=== PATIENT | female | born 1960 | race Caucasian/White ===

== ENCOUNTER → 2022-05-06 09:52 | Outpatient (BNVA) | payer MEDICARE, SELFPAY | PROVIDERS: Visit Provider Anesthesiology Pain Medicine | DX: G89.29 Other chronic pain (principal); M54.12 Radiculopathy, cervical region; M54.16 Radiculopathy, lumbar region; M43.26 Fusion of spine, lumbar region; M43.24 Fusion of spine, thoracic region; Z87.891 Personal history of nicotine dependence | CPT/HCPCS: 72040; 72070; 72100; 99204 ==

== ENCOUNTER → 2022-05-27 09:05 | Outpatient (BNVA) | payer MEDICARE, SELFPAY | PROVIDERS: Visit Provider Anesthesiology Pain Medicine | DX: G89.29 Other chronic pain (principal); M43.24 Fusion of spine, thoracic region; M43.26 Fusion of spine, lumbar region; M54.12 Radiculopathy, cervical region; M79.604 Pain in right leg; M79.605 Pain in left leg; Z87.891 Personal history of nicotine dependence | CPT/HCPCS: 99214 ==

== ENCOUNTER → 2022-07-04 10:15 | Outpatient (BNVA) | payer MEDICARE, SELFPAY | PROVIDERS: Visit Provider Anesthesiology Pain Medicine | DX: G89.29 Other chronic pain (principal); M54.12 Radiculopathy, cervical region; M43.24 Fusion of spine, thoracic region; M43.26 Fusion of spine, lumbar region; M79.604 Pain in right leg; M79.605 Pain in left leg; Z87.891 Personal history of nicotine dependence | CPT/HCPCS: 99214 ==

== ENCOUNTER → 2022-07-22 08:42 | Outpatient (BNVA) | payer MEDICARE, SELFPAY | PROVIDERS: Visit Provider Anesthesiology Pain Medicine | DX: G89.29 Other chronic pain (principal); M43.24 Fusion of spine, thoracic region; M54.12 Radiculopathy, cervical region; M43.26 Fusion of spine, lumbar region; M79.18 Myalgia, other site | CPT/HCPCS: 20553; 99214; J1030; J3490 ==

== ENCOUNTER → 2022-08-22 09:50 | Outpatient (BNVA) | payer MEDICARE, SELFPAY | PROVIDERS: Visit Provider Anesthesiology Pain Medicine | DX: G89.29 Other chronic pain (principal); M43.26 Fusion of spine, lumbar region; M43.24 Fusion of spine, thoracic region; M54.12 Radiculopathy, cervical region; M79.604 Pain in right leg; M79.605 Pain in left leg | CPT/HCPCS: 99214 ==

== ENCOUNTER 2022-09-23 09:04 | Outpatient (CLI) | payer MEDICARE, SELFPAY ==
--- NOTE | 2022-09-23 09:31 | US_ITS ---
WS: [id number] ULTRASOUND LEFT BREAST HISTORY: Status post LEFT mastectomy for cancer. Patient experiencing pain and palpable nodule along the surgical site near the axillary tail. COMPARISON: None available. TECHNIQUE: 2-D and Doppler. Ultrasound is directed along the axillary tail, near the surgical site in the area of pain. No suspic ious findings are identified. No mass is identified. No abnormality in the LEFT axilla. US/US breast LT limited* [id number] IMPRESSION: BI-RADS: 2-Benign FOLLOW-UP: See Report No ultrasound abnormality involving the LEFT chest wall at the mastectomy site.
== END 2022-09-23 09:05 | disposition home or self-care (01) ==
LOC: RAD 09:17
PROVIDERS: Visit Provider Family Medicine
DX: N64.4 Mastodynia (principal); Z90.12 Acquired absence of left breast and nipple
CPT/HCPCS: 76642

== ENCOUNTER → 2022-11-14 09:24 | Outpatient (BNVA) | payer MEDICARE, SELFPAY | PROVIDERS: PCP Family Medicine; Visit Provider Internal Medicine Pulmonary Disease | DX: J44.9 Chronic obstructive pulmonary disease, unspecified (principal); Z87.891 Personal history of nicotine dependence; Z98.1 Arthrodesis status | CPT/HCPCS: 99204 ==

== ENCOUNTER → 2023-03-10 11:10 | Outpatient (BNVA) | payer MEDICARE, SELFPAY | PROVIDERS: PCP Family Medicine; Visit Provider Internal Medicine Pulmonary Disease | DX: M25.641 Stiffness of right hand, not elsewhere classified (principal); M25.642 Stiffness of left hand, not elsewhere classified; J98.4 Other disorders of lung; M41.9 Scoliosis, unspecified; J84.9 Interstitial pulmonary disease, unspecified; R06.02 Shortness of breath | CPT/HCPCS: 36415; 71046; 82785; 85025; 85651; 86003; 86140; 86200; 86225; 86235; 86431; 99214 ==

== ENCOUNTER → 2023-03-19 10:13 | Outpatient (BNVA) | payer MEDICARE, SELFPAY | PROVIDERS: PCP Family Medicine; Visit Provider Anesthesiology Pain Medicine | DX: M43.24 Fusion of spine, thoracic region (principal); G89.29 Other chronic pain; M54.12 Radiculopathy, cervical region; M43.26 Fusion of spine, lumbar region | CPT/HCPCS: 99214 ==

== ENCOUNTER 2023-03-27 09:49 | Outpatient (CLI) | payer MEDICARE, SELFPAY ==
[2023-03-27 10:19] VITALS: PULSE 70; RESP 18; O2SAT 97
[2023-03-27] MEDS: albuterol 2.5 mg/3 mL Neb INHALATION (10:19)
[2023-03-27 10:24] VITALS: PULSE 71
== END 2023-03-27 09:50 | disposition home or self-care (01) ==
LOC: RT 09:54
PROVIDERS: PCP Family Medicine; Visit Provider Internal Medicine Pulmonary Disease
DX: J44.9 Chronic obstructive pulmonary disease, unspecified (principal); Z87.891 Personal history of nicotine dependence; R94.2 Abnormal results of pulmonary function studies
CPT/HCPCS: 94060; 94618; 94729; J7613

== ENCOUNTER 2023-04-29 13:58 | Observation (INO) | payer MEDICARE, SELFPAY ==
[2023-04-28 09:57] VITALS: BMI 34.2
--- NOTE | 2023-04-28 10:37 | ECG_ITS ---
[facility] Test Date: 2023-04-28 Pat Name: Iman Hooper Department: Room: Gender: Female [place] [employer]: : 1960 Requested By: Avi Simeon Order Number: [id number] Reading MD: Tommy Diaz M.D. Measurements Intervals [place] Rate: 61 P: 23 HI: 161 QRS: -8 QRSD: 91 T: 11 QT: 400 QTc: 404 Interpretive Statements SINUS RHYTHM POSSIBLE LEFT ATRIAL ENLARGEMENT [-0.1mV P-WAVE IN V1/V2] NONSPECIFIC ST & T-WAVE ABNORMALITY No previous ECG available for comparison Electronically Signed On 04-28-2023 16:04:39 CDT by Tommy Diaz M.D. [email or web address]
[2023-04-28 11:01] LABS: Add Urine Microscopic? NO; Charge for UA Resulting for Rev
[2023-04-28 11:15] LABS: Bilirubin Urine Neg (Negative); Blood Urine Neg (Negative); Glucose Urine UA Norm (Normal); Ketones Urine Negative (Negative); Leukocyte Esterase Urine Negative (Negative); Nitrate Urine Negative (Negative); Protein Urine Neg (Negative); Urine Appearance Clear (CLEAR); Urine Color Yellow (Yellow); Urobilinogen Urine Norm (Negative); pH Urine 5 (5-7)
[2023-04-28 11:23] LABS: Basophils # 0.1 10^3/uL (0.0-0.1); Eosinophils # 0.3 10^3/uL (0.0-0.8); Eosinophils % 3.5 %; Lymphocytes # 1.7 10^3/uL (0.8-4.8); Lymphocytes % 23.6 %; Mean Corpuscular HGB Conc 32.3 g/dL (30-55); Mean Corpuscular Hemoglobin 31.4 pg (27-33); Mean Corpuscular Volume 97.2 fl (85-98); Mean Platelet Volume 10.4 fL (7.4-10.4); Monocytes # 0.5 10^3/uL (0.2-0.9); Monocytes % 7.3 %; Neutrophils # 4.61 10^3/uL (1.8-7.7); Neutrophils % 64.3 %; Nucleated Red Blood Cells % 0 %; Platelet Count 366 10^3/cmm (157-399); Red Blood Count 4.94 10^6/uL (3.85-5.65); Red Cell Distribution Width 12.7 % (12.1-15.1); White Blood Count 7.16 10^3/uL (3.29-11.43)
[2023-04-28 11:30] LABS: Alanine Aminotransferase 18 U/L (0-33); Albumin Level 4.3 g/dL (3.5-5.2); Alkaline Phosphatase 97 U/L (35-105); Anion Gap 14.5 (5-19); Aspartate Amino Transferase 17 U/L (0-32); Blood Urea Nitrogen 21 mg/dL (8-23); Calcium 9.4 mg/dL (8.5-10.5); Carbon Dioxide 29 mmol/L (22-29); Chloride 105 mmol/L (98-107); Globulin 2.7 g/dL (1.3-4.6); Glomerular Filtration Rate 100.6 mL/min (90-130); Glucose 90 mg/dL (65-115); Osmolality Calculated 301 mOsm/kg (285-295); Potassium 4.5 mmol/L (3.5-5.1); Sodium 144 mmol/L (136-145); Total Bilirubin 0.2 mg/dL (0.15-1.2)
--- NOTE | 2023-04-28 12:54 | P.ANESASSM_ITS ---
Pre-Anesthetic Assessment Height/Weight: Height 1.55 m Weight 82.1 kg Operation Date: 04/29/23 07:00 Proposed Procedures p Anterior and posterior colporrhaphy 92469, Single incision sling 14750,N81.10(Not Applicable) - Avi Longoria MD s Posterior Repair Posterior Colporrhaphy(Not Applicable) - Avi Longoria MD s Sling Single Incision Sling(Not Applicable) - Avi Longoria MD Familial anesthetic complications: none Was Beta Ruby taken within 24 hours: Yes Was Clonidine taken within 24 hours: N/A Social Tobacco and No alcohol Exam alert, oriented x 3 and regular rate & rhythm Airway Submandibular: within normal limits Cervical ROM: Other (limited extension secondary to fixation) Pulmonary Chronic Obstructive Pulmonary Disease CV/HEM Hypertension Musc/skel Lower Back Pain and Osteoarthritis/DJD Neuropsych chronic pain/opioid Anesthetic Plan ASA status: 3 Anesthesia: General Medications/Allergies Home Medications Medication Instructions Recorded Confirmed Last Taken Type duloxetine 60 mg capsule,delayed 60 mg PO DAILY #60 caps 07/22/22 04/28/23 04/28/23 Rx release bupropion HCl 300 mg 24 hr tablet, 450 mg PO QAM 11/14/22 04/28/23 04/28/23 History extended release gabapentin 300 mg capsule 300 mg PO TID pain #90 caps 03/19/23 04/28/23 04/28/23 Rx oxycodone-acetaminophen 5 mg-325 1 tab PO TID PRN pain 30 days #90 03/19/23 04/28/23 04/27/23 Rx mg tablet tabs tizanidine 4 mg tablet 4 mg PO BID PRN muscle spasticity 03/19/23 04/28/23 10:17 Rx #60 tabs ibuprofen 800 mg tablet 800 mg PO Q6H PRN muscle spams 04/17/23 04/28/23 04/27/23 History metoprolol succinate 25 mg 25 mg PO DAILY 04/17/23 04/28/23 04/28/23 History tablet,extended release 24 hr Allergies Allergy/AdvReac Type Severity Reaction Status Date / Time adhesive tape Allergy ALGY-Bliste Verified 04/17/23 08:13 r paper tape Allergy Unknown ALGY-Bliste Uncoded 04/17/23 08:13 r [facility] Anesthesia Family History Mother Diabetes Heart disease Sister Diabetes Hypercholesteremia Brother Diabetes Heart disease Hypercholesteremia Denies family history of Colon cancer Ovarian cancer Breast cancer Hypertension Uterine cancer Thyroid disease Stroke Social History Smoking and tobacco status: former smoker Quit status (tobacco): has quit using tobacco Year quit tobacco: 1999 Former quit date comment: 1.5 ppd X 15 years Marital status: Number of children: 3 Data Anesthesia 04/28/23 10:00 04/28/23 10:00 Short CBC 04/28/23 Range/Units 10:00 WBC 7.16 (3.29-11.43) 10^3/uL Hgb 15.50 (11.27-16.99) g/dL Hct 48.0 H (36-47) % MCV 97.2 (85-98) fl Plt Count 366 (157-399) 10^3/cmm Neut % (Auto) 64.3 % Neut # (Auto) 4.61 (1.8-7.7) 10^3/uL BMP 04/28/23 10:00 Sodium 144 Potassium 4.5 Chloride 105 Carbon Dioxide 29 BUN 21 Creatinine 0.6 Glucose 90 Calcium 9.4 Liver Function 04/28/23 Range/Units 10:00 Total Bilirubin 0.2 (0.15-1.2) mg/dL AST 17 (0-32) U/L ALT 18 (0-33) U/L Alkaline Phosphatase 97 (35-105) U/L Albumin 4.3 (3.5-5.2) g/dL Urine 04/28/23 Range/Units 10:00 Urine Color Yellow (Yellow) Urine Appearance Clear (CLEAR) Urine pH 5 (5-7) Ur Specific [place] 1.020 (1.005-1.030) Urine Protein Neg (Negative) Urine Glucose (UA) Norm (Normal) Urine Ketones Negative (Negative) Urine Nitrate Negative (Negative) Urine Bilirubin Neg (Negative) Ur Leukocyte Esterase Negative (Negative) Blood Bank 04/28/23 10:00 Blood Type O Positive Rho(D) Type Positive Antibody Screen Negative Cardiac Studies: No Data to Display
[2023-04-29] VITALS (20 sets, daily range): BP systolic 119–174; BP diastolic 67–102; PULSE 65–89; RESP 12–25; TEMP 36.2–36.7; O2SAT 90–96; BMI 34.2
[2023-04-29] MEDS: enoxaparin 30 mg/0.3 mL Syringe SUBCUT (09:05)
[2023-04-29] MEDS: sodium chloride 0.9% 1,000 ML 30 ML IV (09:05)
--- NOTE | 2023-04-29 09:09 | P.ANESUD_ITS ---
Pre-Anesthetic Update Pre-Anesthetic Assessment: Date of Surgery/Procedure: 04/29/23 Preop Niyah gnosis: Cystocele stage II rectocele stage III Proposed Procedure: Operation Date: 04/29/23 09:50 Proposed Procedures p Anterior and posterior colporrhaphy 16347, Single incision sling 03807,N81.10(Not Applicable) - Avi Longoria MD s Posterior Repair Posterior Colporrhaphy(Not Applicable) - Avi Longoria MD s Sling Single Incision Sling(Not Applicable) - Avi Longoria MD Last Intake: Intake Last Liquid Date 04/28/23 Last Liquid Time 21:00 Last Solid Date 04/28/23 Last Solid Time 21:00 Labs Last 48hrs: Short CBC 04/28/23 Range/Units 10:00 WBC 7.16 (3.29-11.43) 10^ 3/uL Hgb 15.50 (11.27-16.99) g/ dL Hct 48.0 H (36-47) % MCV 97.2 (85-98) fl Plt Count 366 (157-399) 10^3/c mm Neut % (Auto) 64.3 % Neut # (Auto) 4.61 (1.8-7.7) 10^3/u L BMP 04/28/23 10:00 Sodium 144 Potassium 4.5 Chloride 105 Carbon Dioxide 29 BUN 21 Creatinine 0.6 Glucose 90 Calcium 9.4 Liver Function 04/28/23 Range/Units 10:00 Total Bilirubin 0.2 (0.15-1.2) mg/dL AST 17 (0-32) U/L ALT 18 (0-33) U/L Alkaline Phosphata se 97 (35-105) U/L Albumin 4.3 (3.5-5.2) g/dL Urine 04/28/23 Range/Units 10:00 Urine Color Yellow (Yellow) Urine Appearance Clear (CLEAR) Urine pH 5 (5-7) Ur Specific [place] y 1.020 (1.005-1.030) Urine Protein Neg (Negative) Urine Glucose (UA) Norm (Normal) Urine Ketones Negative (Negative) Urine Nitrate Negative (Negative) Urine Bilirubin Neg (Negative) Ur Leukocyte Seema ase Negative (Negative) Blood Bank 04/28/23 10:00 Blood Type O Positive Rho(D) Type Positive Antibody Screen Negative Vitals: Temperature 97.1 F L 04/29/23 08:29 Temperature Source Temporal Artery S can 04/29/23 08:29 Pulse Rate 65 04/29/23 08:29 Respiratory Rate 16 04/29/23 08:29 Blood Pressure 155/101 04/29/23 08:29 Blood Pressure Tessa n 119 04/29/23 08:29 Pulse Oximetry 96 04/29/23 08:29 Oxygen Delivery Me thod Room Air 04/29/23 08:30 Cardiac Studies: No Data to Display
--- NOTE | 2023-04-29 09:09 | P.ANESUD_ITS ---
Pre-Anesthetic Update Pre-Anesthetic Assessment: Date of Surgery/Procedure: 04/29/23 Preop Niyah gnosis: Cystocele stage II rectocele stage III Proposed Procedure: Operation Date: 04/29/23 09:50 Proposed Procedures p Anterior and posterior colporrhaphy 09252, Single incision sling 41187,N81.10(Not Applicable) - Avi Longoria MD s Posterior Repair Posterior Colporrhaphy(Not Applicable) - Avi Longoria MD s Sling Single Incision Sling(Not Applicable) - Avi Longoria MD Any changes to Pre-Anesthetic Assessment?: No Last Intake: Intake Last Liquid Date 04/28/23 Last Liquid Time 21:00 Last Solid Date 04/28/23 Last Solid Time 21:00 Labs Last 48hrs: Short CBC 04/28/23 Range/Units 10:00 WBC 7.16 (3.29-11.43) 10^ 3/uL Hgb 15.50 (11.27-16.99) g/ dL Hct 48.0 H (36-47) % MCV 97.2 (85-98) fl Plt Count 366 (157-399) 10^3/c mm Neut % (Auto) 64.3 % Neut # (Auto) 4.61 (1.8-7.7) 10^3/u L BMP 04/28/23 10:00 Sodium 144 Potassium 4.5 Chloride 105 Carbon Dioxide 29 BUN 21 Creatinine 0.6 Glucose 90 Calcium 9.4 Liver Function 04/28/23 Range/Units 10:00 Total Bilirubin 0.2 (0.15-1.2) mg/dL AST 17 (0-32) U/L ALT 18 (0-33) U/L Alkaline Phosphata se 97 (35-105) U/L Albumin 4.3 (3.5-5.2) g/dL Urine 04/28/23 Range/Units 10:00 Urine Color Yellow (Yellow) Urine Appearance Clear (CLEAR) Urine pH 5 (5-7) Ur Specific [place]it y 1.020 (1.005-1.030) Urine Protein Neg (Negative) Urine Glucose (UA) Norm (Normal) Urine Ketones Negative (Negative) Urine Nitrate Negative (Negative) Urine Bilirubin Neg (Negative) Ur Leukocyte Seema ase Negative (Negative) Blood Bank 04/28/23 10:00 Blood Type O Positive Rho(D) Type Positive Antibody Screen Negative Vitals: Temperature 97.1 F L 04/29/23 08:29 Temperature Source Temporal Artery S can 04/29/23 08:29 Pulse Rate 65 04/29/23 08:29 Respiratory Rate 16 04/29/23 08:29 Blood Pressure 155/101 04/29/23 08:29 Blood Pressure Tessa n 119 04/29/23 08:29 Pulse Oximetry 96 04/29/23 08:29 Oxygen Delivery Me thod Room Air 04/29/23 08:30 Exam: Pre-Anes Outpt Exam: alert, oriented x 3, clear to auscultation bilaterally and regular rate & rhythm Cardiac Studies: No Data to Display
[2023-04-29] MEDS: HYDROmorphone 1 mg/mL INJ 1 mL 0.5 MG IVP (09:11)
[2023-04-29] MEDS: scopolamine 1.5 Patch 1 PATCH TRANSDERMA (09:11)
--- NOTE | 2023-04-29 10:03 | W.PM.OPSUD ---
Surgery/Procedure H&P Update DATE OF PROCEDURE: April 29, 2023 DATE H&P PERFORMED: 04/17/23 H&P UPDATE INFORMATION: I have reviewed H&P completed within last 30 days, I have examined patient prior to procedure and No changes to prior documentation PREOP DIAGNOSIS: Cystocele stage II rectocele stage III PLANNED PROCEDURE: Operation Date: 04/29/23 09:50 Proposed Procedures p Anterior and posterior colporrhaphy 30802, Single incision sling 73844,N81.10(Not Applicable) - Avi Longoria MD s Posterior Repair Posterior Colporrhaphy(Not Applicable) - Avi Longoria MD s Sling Single Incision Sling(Not Applicable) - Avi Longoria MD
[2023-04-29] MEDS: ceFAZolin 2,000 MG in sodium chloride 0.9% (plus) 50 ML 100 MG IV (10:10)
[2023-04-29] MEDS: lidocaine-epi 2% 20 mL INJ INJECTION (11:36)
[2023-04-29] MEDS: estrogens Conjugated Cream 30 gm 1 APPLIC VAGINAL (12:11)
--- NOTE | 2023-04-29 12:20 | PM.OP ---
Operative Report Date of procedure: April 29, 2023 Pre-op diagnosis: Cystocele stage II Rectocele stage III Post-op diagnosis: Same Procedure done: Anterior colporrhaphy augmented with allograft Single incision mid urethral sling Posterior colporrhaphy Cystoscopy Implants: Coloplast dermis allograft Surgeon: Avi Longoria MD Estimated blood loss (mL): 25 IV fluids (mL): 900 Urine output (mL): 200 Procedure: After obtaining informed consent, the patient was taken to the operating room and placed in the supine position, given general anesthesia, and prepped and draped in sterile fashion. The abdomen, vulva and vagina were prepped and draped in a sterile manner. A time out procedure was performed. The anterior vaginal mucosa beneath the midurethra was infiltrated with 0.5% Marcaine with epinephrine. A vertical midline incision was made beneath the midurethra, nearly 1.5 cm length. Careful submucosal dissection was performed bilaterally up to the interior portion of the inferior pubic ramus. The insertion of adductor longus tendon on the patient?s pubic ramus was identified as reference land chepe. Palpated the notch along the internal edge of ischiopubic ramus where the adductor longus tendon and the inferior pubic ramus meet. The Altis single incision sling (SIS) was selected. Then the needle of the SIS inserted aiming at the location of this notch. One of the integrated self-fixating tips place onto the needle by sliding it over the end of the needle. The needle/sling assembly was inserted toward the location of identified reference notch making sure that the flat of the handle is perpendicular to the desired path. The needle was tracked along the posterior surface of the ischiopubic ramus until the midline chepe on the mesh is approximately at the midline position under the urethra. The needle was removed and the same was repeated on the contralateral side until the appropriate sling tension under the urethra was achieved ensuring that the mesh lays flat. The needle was removed and vaginal incision was closed in a running interlocking fashion with 2-0 Vicryl. The vaginal mucosa was then injected in the midline with normal saline. The vaginal mucosa was scored in the midline with the Bovie approximately 1 cm medial to the urethral meatus to 1 cm distal to the vaginal cuff. This vaginal mucosa was then undermined and then incised in the midline with the Metzenbaum scissors. The lateral aspects of the vaginal mucosa were then grasped with the Allis clamps and the vaginal mucosa was then dissected off the underlying fascia with the Metzenbaum scissors. Again, there was noted to be quite a bit of oozing at the incision, which was controlled with cautery. After adequate dissection was performed, bilaterally. An Coloplast allograft modified at time of application to fit spacea, 3 x 3 cm piece . The allograft placed in front of cystocele ready to be implanted facing the vagina mucosa. Suture is placed at distal end of graft and placed towards vaginal cuff. Final suture is placed on proximal portion of the graft to complete the placement overlying the bladder. Then Interrupted vertical mattress sutures of 0 Vicryl were used to elevate the cystocele superiorly. The excessive vaginal mucosa was then trimmed with the Metzenbaum scissors and the vaginal mucosa was then reapproximated in the running interlocking fashion with 2-0 Vicryl. A posterior repair was performed next. An incision was made across the introitus. Metzenbaum scissors were used to tunnel beneath posterior vaginal mucosa until the apex of the rectocele bulge was reached. At this point, the rectum was from the posterior vaginal mucosa using sharp and blunt dissection, and the rectal bulge imbricated in the midline with interrupted sutures of 2-0 vicryl suture. Levator ani muscles on either side were approximated in the midline with interrupted 0 Vicryl sutures. Excess posterior vaginal mucosa was excised, and the vaginal episiotomy was repaired by approximating the posterior vaginal mucosa with a suture of Vicryl #0. Then the Tesfaye catheter was removed and cystoscope was inserted. The bladder was filled with sterile water. Complete evaluation of the bladder mucosa was performed noting no lacerations, dimpling, tears, bleeding of the mucosa or muscular layers. Both ureteral orifices were identified. Prompt excretion of urine from both ureteral orifices was noted. Cystoscope was withdrawn. The Tesfaye catheter was replaced. Excellent hemostasis was obtained. A vaginal pack is placed overnight as postoperative support for the vaginal tissues after graft placement and closure of vaginal incisions. Sponge, lap, needle, and instrument counts were correct times three. The patient was taken to the recovery room, awake and in stable condition.
[2023-04-29] MEDS: ondansetron 2 mg/ML SDV 2 mL 4 MG IVP (12:36)
[2023-04-29] MEDS: diphenhydrAMINE 50 mg/mL SDV 1mL (12:45)
[2023-04-29] MEDS: dextrose 5%-lactated ringers 1,000 ML 125 ML IV ×2 (14:14→22:18)
[2023-04-29] MEDS: ketorolac 30 mg/mL INJ IVP ×2 (14:14→20:22)
--- NOTE | 2023-04-29 14:31 | ANE.PACU2 ---
Inpatient post-anesthesia follow up: Airway intact: Yes Vital signs: Temperature 97.2 F Pulse Rate 70 Respiratory Rate 25 Blood Pressure 128/86 Pulse Oximetry 90 Oxygen Delivery Me thod Room Air Oxygen Flow Rate Fraction of Inspir ed Oxygen Hydration adequate: Yes Nausea and vomiting: No Pain level: 2 Mental status: Baseline
[2023-04-29] MEDS: oxyCODONE-APAP 5-325 mg Tablet 1 TAB PO (15:44)
[2023-04-29] MEDS: benzonatate 100 mg Capsule PO (16:50)
[2023-04-29] MEDS: gabapentin 300 mg Capsule PO (17:35)
[2023-04-29] MEDS: docusate sodium 100 mg Capsule PO (17:35)
[2023-04-29] MEDS: metoprolol succinate ER (24 HR) 25 mg Tablet PO (17:36)
[2023-04-29] MEDS: duloxetine 60 mg Capsule PO (17:36)
[2023-04-29] MEDS: tizanidine 4 mg Tablet PO (17:36)
[2023-04-29] MEDS: acetaminophen 325 mg Tablet 650 MG PO (20:20)
[2023-04-30] MEDS: ketorolac 30 mg/mL INJ IVP (01:50)
[2023-04-30] MEDS: gabapentin 300 mg Capsule PO ×2 (01:50→08:55)
[2023-04-30] MEDS: tizanidine 4 mg Tablet PO (01:50)
[2023-04-30] MEDS: simethicone 80 mg Chew PO (01:51)
[2023-04-30 04:11] VITALS: RESP 18
[2023-04-30] MEDS: oxyCODONE-APAP 5-325 mg Tablet 1 TAB PO (04:11)
[2023-04-30 05:58] VITALS: BP 104/64; PULSE 74; RESP 16; TEMP 37; O2SAT 94
[2023-04-30 06:38] LABS: Hematocrit 35.7 % (36-47); Mean Corpuscular HGB Conc 32.2 g/dL (30-55); Mean Corpuscular Hemoglobin 31.8 pg (27-33); Mean Corpuscular Volume 98.6 fl (85-98); Mean Platelet Volume 10.3 fL (7.4-10.4); Platelet Count 264 10^3/cmm (157-399); Red Blood Count 3.62 10^6/uL (3.85-5.65); Red Cell Distribution Width 12.4 % (12.1-15.1)
[2023-04-30] MEDS: buPROPion XL (24 HR) 150 mg Tablet 450 MG PO (06:42)
--- NOTE | 2023-04-30 08:52 | PM.OBGYDC ---
Discharge Providers [employer] Date of Admission: 04/29/23 13:58 Date of Discharge: 04/30/23 Attending Provider at Admission: Avi Longoria MD Attending Provider at Discharge: Avi Longoria MD Primary Care Provider: Jaida Guerra Reason for Visit Reason for Visit: 49534 13616 N81.10 Hospital Course Hospital Course Ms. Hooper 63-year-old female with cystocele stage II and rectocele stage III was admitted for planned anterior colporrhaphy augmented with allograft, single incision mid urethral sling, and posterior colporrhaphy. The procedures were performed without complication. Overnight observation was uneventful. She is afebrile and hemodynamically stable postoperative day 1. PVR within normal limits. Tolerating diet well. Ambulating same as previous surgery. Pain well under control. Physical Exam Narrative: GA: Alert and oriented ?3. HEENT: WNL. Heart: Regular rate and rhythm. Lungs: Clear to auscultation bilaterally. Abdomen: Bowel sounds present, nontender. PLANNER SCHEDULER: Spotting bleeding. Extremities: No edema, no cyanosis, no calves pain. Urinary Catheter Management: Tesfaye: Cath Placed During This Visit: yes, but has since been removed by the nurse Reason for Continuing Indwelling Catheter: Decision to DC Catheter Urinary Catheter Date of Insertion: 04/29/23 Urinary Catheter Time of Insertion: 10:42 Date Urinary Catheter Removed: 04/30/23 Time Urinary Catheter Discontinued: 06:05 History History History 4 Term 3 0 Miscarriages/Ectopic 1 Living Children 3 Discharge Data Studies Completed and Pending Pending at discharge Category Date Time Status Complete Blood Count w/Auto Routine Lab 04/30/23 06:05 Stop Req Comprehensive Metabolic Panel Routine Lab 04/30/23 06:05 Stop Req Laboratory Results WBC 12.60 10^3/uL (3.29-11.43) H 04/30/23 06:05 RBC 3.62 10^6/uL (3.85-5.65) L 04/30/23 06:05 Hgb 11.50 g/dL (11.27-16.99) 04/30/23 06:05 Hct 35.7 % (36-47) L 04/30/23 06:05 MCV 98.6 fl (85-98) H 04/30/23 06:05 MCH 31.8 pg (27-33) 04/30/23 06:05 MCHC 32.2 g/dL (30-55) 04/30/23 06:05 RDW 12.4 % (12.1-15.1) 04/30/23 06:05 Plt Count 264 10^3/cmm (157-399) 04/30/23 06:05 MPV 10.3 fL (7.4-10.4) 04/30/23 06:05 Neut % (Auto) 64.3 % 04/28/23 10:00 Lymph % (Auto) 23.6 % 04/28/23 10:00 [place] % (Auto) 7.3 % 04/28/23 10:00 Eos % (Auto) 3.5 % 04/28/23 10:00 Baso % (Auto) 1.0 % 04/28/23 10:00 Neut # (Auto) 4.61 10^3/uL (1.8-7.7) 04/28/23 10:00 Lymph # (Auto) 1.7 10^3/uL (0.8-4.8) 04/28/23 10:00 [place] # (Auto) 0.5 10^3/uL (0.2-0.9) 04/28/23 10:00 Eos # (Auto) 0.3 10^3/uL (0.0-0.8) 04/28/23 10:00 Baso # (Auto) 0.1 10^3/uL (0.0-0.1) 04/28/23 10:00 Nucleated RBC % (auto) 0 % 04/28/23 10:00 Nucleated RBCs # 0.0 /100WBC 04/28/23 10:00 Sodium 144 mmol/L (136-145) 04/28/23 10:00 Potassium 4.5 mmol/L (3.5-5.1) 04/28/23 10:00 Chloride 105 mmol/L (98-107) 04/28/23 10:00 Carbon Dioxide 29 mmol/L (22-29) 04/28/23 10:00 Anion Gap 14.5 (5-19) 04/28/23 10:00 BUN 21 mg/dL (8-23) 04/28/23 10:00 Creatinine 0.6 mg/dL (0.5-0.9) 04/28/23 10:00 GFR Calculation 100.6 mL/min (90-130) 04/28/23 10:00 Glucose 90 mg/dL (65-115) 04/28/23 10:00 Calculated Osmolality 301 mOsm/kg (285-295) H 04/28/23 10:00 Calcium 9.4 mg/dL (8.5-10.5) 04/28/23 10:00 Total Bilirubin 0.2 mg/dL (0.15-1.2) 04/28/23 10:00 AST 17 U/L (0-32) 04/28/23 10:00 ALT 18 U/L (0-33) 04/28/23 10:00 Alkaline Phosphatase 97 U/L (35-105) 04/28/23 10:00 Total Protein 7.0 g/dL (6.6-8.7) 04/28/23 10:00 Albumin 4.3 g/dL (3.5-5.2) 04/28/23 10:00 Globulin 2.7 g/dL (1.3-4.6) 04/28/23 10:00 Urine Color Yellow (Yellow) 04/28/23 10:00 Urine Appearance Clear (CLEAR) 04/28/23 10:00 Urine pH 5 (5-7) 04/28/23 10:00 Ur Specific [place] 1.020 (1.005-1.030) 04/28/23 10:00 Urine Protein Neg (Negative) 04/28/23 10:00 Urine Glucose (UA) Norm (Normal) 04/28/23 10:00 Urine Ketones Negative (Negative) 04/28/23 10:00 Urine Blood Neg (Negative) 04/28/23 10:00 Urine Nitrate Negative (Negative) 04/28/23 10:00 Urine Bilirubin Neg (Negative) 04/28/23 10:00 Urine Urobilinogen Norm mg/dL (Negative) 04/28/23 10:00 Ur Leukocyte Esterase Negative (Negative) 04/28/23 10:00 Blood Type O Positive 04/28/23 10:00 Rho(D) Type Positive 04/28/23 10:00 Antibody Screen Negative 04/28/23 10:00 Vitals Last Vital Signs Temp 98.6 F 04/30/23 05:58 Pulse 74 04/30/23 05:58 Resp 16 04/30/23 05:58 BP 104/64 04/30/23 05:58 Pulse Ox 94 04/30/23 05:58 O2 Del Method Room Air 04/30/23 05:58 Discharge Plan Discharge Patient Disposition: Home Condition: Stable Prescriptions: New hydrocodone-acetaminophen 5-325 mg tablet 1 tab PO Q4H PRN (Reason: pain) Qty: 10 0RF ibuprofen 800 mg tablet 800 mg PO TID PRN (Reason: pain) Qty: 60 0RF benzonatate 150 mg capsule 150 mg PO BID PRN (Reason: cough) Qty: 30 0RF acetaminophen 325 mg capsule 325 mg PO Q4H PRN (Reason: fever or pain) Qty: 60 0RF docusate sodium [Colace] 100 mg capsule 100 mg PO BID Qty: 60 0RF Continued ibuprofen 800 mg tablet 800 mg PO Q6H PRN (Reason: muscle spams) duloxetine 60 mg capsule,delayed release(DR/EC) 60 mg PO DAILY Qty: 60 4RF bupropion HCl 300 mg tablet extended release 24 hr 450 mg PO QAM metoprolol succinate 25 mg tablet extended release 24 hr 25 mg PO DAILY oxycodone-acetaminophen 5-325 mg tablet 1 tab PO TID MDD 3 PRN (Reason: pain) 30 Days Qty: 90 0RF tizanidine 4 mg tablet 4 mg PO BID PRN (Reason: muscle spasticity) Qty: 60 3RF gabapentin 300 mg capsule 300 mg PO TID Qty: 90 4RF Discharge Orders: Discharge Order (Routine); Ordered 04/30/23 Ordered By: Avi Longoria Referrals: Avi Longoria MD [Physician] - (Patient two week follow up appointment scheduled on at 1:00 pm Patient six week follow up appointment scheduled for June 12 at 11:15 am) Discharge Diet: Soft Mechanical Discharge Activity: Limit activity as instructed Patient Instructions: Anterior Vaginal Repair (DC), Posterior Vaginal Repair (DC), OB Discharge Report, OB Food/Drug Interaction Guide, Opioid Safety, Bladder Sling for Women (GEN) Activity Restrictions/Additional Instructions: 1. Please call [facility] on next working day to make your post-operative appointment in 2 weeks. 2. Please stay home until you come back to the clinic on first post-hospatilization check up. 3. Please follow instructions on your medications CAREFULLY. 4. If you have abdominal incision, do not cover it unless dressing is necessary because of drainage. OK to shower, but avoid bath. Leave steri-strips until they fall off. If they are still on one week after surgery, you may remove them. 5. If you had vaginal surgery or vaginal repair, Dr. Longoria may instruct you to take SITZ bath. 6. Yellow, blood tinged odorous vaginal discharge is usually normal after hysterectomy or vaginal surgeries. 7. No SEXUAL INTERCOURSE, tampons, or douches until you are completely released from the post-operative care. 8. Avoid constipation by eating right and maybe using some Metamucil or Milk of Magnesia. 9. All prescription refills are given during the working hours. Please do no wait till it runs out. Call the clinic at [phone] before your medication runs out. The clinic will get in touch with your doctor to prescribe medications if necessary. 10. Please remain within 40 mile radius from our hospital because emergencies do happen now and then during the post-operative period. 11. If you have stairs at home, take one step at a time slowly and minimize the number of trips. It helps to stay in one floor for the next few days. No lifting except what you can lift by one hand until you are released from the post-operative care. 12. Driving is discouraged until you are well healed. It may be 3-4 weeks before you feel strong enough to drive. You should be able to turn and look through the rear window without pain and you should be able to push the brake pedal very hard without pain before you drive. No fast rules, but SAFETY should be your primary concern. DO NOT drive if you are on sedating medications such as narcotics. 13. Call the clinic (during working hours) to make urgent appointment or go to the Emergency room, if any of the following occurs: i. Vaginal bleeding becomes heavy, more than a period. ii. Incision becomes red and sore, or drains pus. iii. Your TEMPERATURE is over 100.4F or you have chill. iv. IV site becomes red and swollen (a little ``knot?? is usually OK) v. Persistent nausea and vomiting vi. Persistent constipation or diarrhea vii. Rash or allergic reaction to medications. Discharge Attestations [employer] Time Spent in Discharge Care*: greater than 30 min Coding Level of Care Code Acute Code for Chg Fwd Diagnoses
[2023-04-30] MEDS: docusate sodium 100 mg Capsule PO (08:55)
[2023-04-30] MEDS: duloxetine 60 mg Capsule PO (08:55)
[2023-04-30] MEDS: metoprolol succinate ER (24 HR) 25 mg Tablet PO (08:55)
[2023-04-30 08:56] VITALS: BP 120/74; PULSE 74; RESP 17; TEMP 36.7; O2SAT 94
[2023-04-30] MEDS: benzonatate 100 mg Capsule PO (08:56)
[2023-04-30 09:57] VITALS: BP 120/74; PULSE 74; RESP 17; TEMP 36.7; O2SAT 94
== END 2023-04-30 09:57 | disposition home or self-care (01) ==
LOC: OBGYN 13:58
PROVIDERS: Admitting Provider Obstetrics & Gynecology; PCP Nurse Practitioner Family; Visit Provider Obstetrics & Gynecology
PROC: 0JQC0ZZ Repair Pelvic Region Subcutaneous Tissue and Fascia, Open Approach (ICD-10-PCS; CPT 57240; principal; 2023-04-29 09:40)
PROC: (CPT 57250; 2023-04-29 09:40)
PROC: (CPT 57288; 2023-04-29 09:40)
DX: N81.10 Cystocele, unspecified (principal); N81.6 Rectocele; J44.9 Chronic obstructive pulmonary disease, unspecified; I10 Essential (primary) hypertension; G89.29 Other chronic pain; Z79.891 Long term (current) use of opiate analgesic; Z87.891 Personal history of nicotine dependence
CPT/HCPCS: 57260; 57267; 57288; 36415; 51798; 80053; 81003; 85025; 85027; 86850; 86900; 93005; C1713; C1762; G0378; J0690; J1100; J1170; J1200; J1650; J1885; J2405; J2704; J3010; J3490; J7030; J7121

== ENCOUNTER → 2023-05-13 13:00 | Outpatient (BNVA) | payer MEDICARE, SELFPAY | PROVIDERS: PCP Nurse Practitioner Family; Visit Provider Nurse Practitioner Women's Health | DX: R30.0 Dysuria (principal); Z48.816 Encounter for surgical aftercare following surgery on the genitourinary system; N89.8 Other specified noninflammatory disorders of vagina | CPT/HCPCS: 87077; 87086; 87184 ==

== ENCOUNTER → 2023-05-27 11:01 | Outpatient (BNVA) | payer MEDICARE, SELFPAY | PROVIDERS: PCP Nurse Practitioner Family; Visit Provider Anesthesiology Pain Medicine | DX: G89.29 Other chronic pain; M43.24 Fusion of spine, thoracic region; M54.12 Radiculopathy, cervical region; M43.26 Fusion of spine, lumbar region | CPT/HCPCS: 99214 ==

== ENCOUNTER → 2023-06-05 09:33 | Outpatient (BNVA) | payer MEDICARE, SELFPAY | PROVIDERS: PCP Nurse Practitioner Family; Visit Provider Anesthesiology Pain Medicine | DX: M79.18 Myalgia, other site (principal); G89.29 Other chronic pain; M54.12 Radiculopathy, cervical region; M43.26 Fusion of spine, lumbar region; M43.24 Fusion of spine, thoracic region | CPT/HCPCS: 20553; 99214; J1030; J3490 ==

== ENCOUNTER → 2023-06-09 14:03 | Outpatient (BNVA) | payer MEDICARE, SELFPAY | PROVIDERS: PCP Nurse Practitioner Family; Visit Provider Internal Medicine Pulmonary Disease | DX: J44.9 Chronic obstructive pulmonary disease, unspecified (principal); J98.4 Other disorders of lung; M41.9 Scoliosis, unspecified; M25.641 Stiffness of right hand, not elsewhere classified; M25.642 Stiffness of left hand, not elsewhere classified; Z87.891 Personal history of nicotine dependence; R91.8 Other nonspecific abnormal finding of lung field | CPT/HCPCS: 99214 ==

== ENCOUNTER 2023-06-20 09:11 | Outpatient (CLI) | payer MEDICARE, SELFPAY ==
--- NOTE | 2023-06-20 10:00 | CT_ITS ---
WS: [id number] CT CHEST TECHNIQUE: Noncontrast CT of the chest with coronal and sagittal reformatted images. High-resolution CT protocol CLINICAL INFORMATION: HRCT COMPARISON: None. DLP: 1038.[address] scans at [facility] use at least one of these dose optimization techniques: automated e xposure control; mA and/or kV adjustment per patient size (includes targeted exams where dose is matc hed to clinical indication); or iterative reconstruction. FINDINGS: Lungs are well aerated. No acute pulmonary infiltrates. Bronchiectasis in the RIGHT middle lobe. No suspicious pulmonary parenchymal opacities. No subpleural reticulation or honeycombing. No e vidence of interstitial lung disease. Aortic calcification. Mediastinal or hilar lymphadenopathy. No axillary lymphadenopathy. Prior postop erative changes bilateral mastectomy. LEFT axillary clips. Postoperative changes at the GE junction. Adrenal glands are normal. Pedicle screw fixation lower thoracic spine. Partially visualized pedicle screw fixation cervical and upper thoracic spine. IMPRESSION: 1. No evidence of interstitial lung disease. 2. Lungs are well aerated. No acute pulmonary infiltrates. 3. Slight bronchiectasis RIGHT middle lobe. 4. No other suspicious findings.
== END 2023-06-20 09:12 | disposition home or self-care (01) ==
LOC: RAD 09:11
PROVIDERS: PCP Nurse Practitioner Family; Visit Provider Internal Medicine Pulmonary Disease
DX: J84.9 Interstitial pulmonary disease, unspecified (principal)
CPT/HCPCS: 71250

== ENCOUNTER → 2023-07-14 10:45 | Outpatient (BNVA) | payer MEDICARE, SELFPAY | PROVIDERS: PCP Nurse Practitioner Family; Visit Provider Specialist | DX: M25.531 Pain in right wrist (principal); M25.532 Pain in left wrist | CPT/HCPCS: 73110; 99204 ==

== ENCOUNTER → 2023-08-04 09:57 | Outpatient (BNVA) | payer MEDICARE, SELFPAY | PROVIDERS: PCP Nurse Practitioner Family; Referring Provider Internal Medicine Pulmonary Disease; Visit Provider Internal Medicine Rheumatology | DX: M17.12 Unilateral primary osteoarthritis, left knee (principal); R76.8 Other specified abnormal immunological findings in serum; M45.6 Ankylosing spondylitis lumbar region; Z11.1 Encounter for screening for respiratory tuberculosis; Z11.59 Encounter for screening for other viral diseases; Z79.899 Other long term (current) drug therapy; M19.041 Primary osteoarthritis, right hand | CPT/HCPCS: 36415; 73030; 73130; 73562; 73630; 80076; 82306; 82565; 85025; 85651; 86140; 86200; 86431; 86480; 86704; 86803; 86812; 87340; 99214 ==

== ENCOUNTER → 2023-08-27 10:38 | Outpatient (BNVA) | payer MEDICARE, SELFPAY | PROVIDERS: PCP Nurse Practitioner Family; Visit Provider Anesthesiology Pain Medicine | DX: M43.24 Fusion of spine, thoracic region (principal); G89.29 Other chronic pain; M54.12 Radiculopathy, cervical region; M43.26 Fusion of spine, lumbar region | CPT/HCPCS: 99214 ==

== ENCOUNTER 2023-08-30 12:33 | Emergency (ER) | payer MEDICARE, SELFPAY ==
[2023-08-30 12:39] VITALS: BP 124/82; PULSE 69; RESP 17; TEMP 36.6; O2SAT 95; BMI 33.0
--- NOTE | 2023-08-30 13:11 | XRR_ITS ---
PROCEDURE INFORMATION: Exam: XR Chest Exam date and time: 08/30/2023 1:14 PM Age: 63 years old Clinical indication: Dyspnea TECHNIQUE: Imaging protocol: Radiologic exam of the chest. Views: 1 view. COMPARISON: CT chest con [id number] 06/20/2023 9:35 AM tree scout view FINDINGS: Lungs: No evidence of acute pneumonia or edema. Pleural spaces: No pleural effusion identified. Heart/Mediastinum: The heart is not enlarged. The mediastinum is not enlarged. Bones/joints: Multiple pieces of hardware related to cervicothoracic and thoracolumbar spinal fusion. Degenerative changes left glenohumeral joint. Soft tissues: Surgical clips are present in the left axilla. A ring-like density is present in the inferomedial aspect of the left hemithorax similar to the prior study. XR/XR chest 1V portable [id number] IMPRESSION: No acute cardiopulmonary abnormality identified.
--- NOTE | 2023-08-30 13:12 | W.ED.SOB ---
HPI - SOB/Dyspnea General: Chief Complaint: Shortness of Breath/Dyspnea Stated Complaint: sob, cough Time Seen by Provider: 08/30/23 13:10 History of Present Illness: HPI Narrative: 63-year-old female presents to the emergency department with complaints of a nonproductive cough and feeling short of breath. She states that she has been ill for the previous 2 to 3 weeks and has been provided a flu and COVID test which she states was negative. She states she also received a chest x-ray and states that she was provided an antibiotic at that time. She states she is also having some abdominal pain that is associated with her excessive coughing. She states she feels like she is having trouble keeping her oxygen saturation elevated. She denies chest pain at present. She does have a history of chronic pain and is managed by pain management. Review of Systems Resp: Reports: dyspnea and non-productive cough [facility] ED PFSH: Medical History Osteoarthritis, generalized High risk medication use Inflammatory arthritis Restrictive lung disease due to kyphoscoliosis Fusion of spine, thoracic region Fusion of lumbar spine Chronic neck and back pain Surgical History H/O of anterior colporrhaphy (~04/29/23) Anterior colporrhaphy augmented with allograft, single incision mid urethral sling, posterior colporrhaphy, cystoscopy with Coloplast dermis allograft. Performed by Dr. Longoria at [facility]. Hx of cervical discectomy Hx of appendectomy History of lumbar surgery Hx of knee surgery Hx of shoulder surgery Hx of mastectomy double- with oral chemo History of surgery on wrist History of ankle surgery Hx of hernia repair umbilical? Hx of hysterectomy in the has a small section of an ovary Family History Mother Diabetes Heart disease Sister Diabetes Hypercholesteremia Brother Diabetes Heart disease Hypercholesteremia Denies family history of Lupus (systemic lupus erythematosus) Rheumatoid arthritis Colon cancer Ovarian cancer Breast cancer Hypertension Uterine cancer Thyroid disease Stroke Social History Smoking and tobacco/nicotine status: former use of tobacco/nicotine Quit status (tobacco/nicotine): has quit using Year quit tobacco: 1999 Former quit date comment: 1.5 ppd X 15 years Marital status: Number of children: 3 Physical Exam Narrative: EXAM NARRATIVE: Constitutional: the patient appears well nourished and of normal development. Vital signs as documented. No acute distress at present. Alert and oriented-to person, place, time and situation. Head, eyes, ears, nose, mouth, throat: Normocephalic, atraumatic. Pupils-equal, round, reactive to light. No scleral icterus. Normal-appearing external ears. Normal appearing nasal turbinates, no drainage. No obvious oral lesions, posterior oropharynx without erythema or exudates. Neck: Supple, trachea is midline, no lymphadenopathy, no jugular venous distension, thyromegaly, or carotid bruits. Carotid upstrokes are brisk bilaterally. Lungs: clear to auscultation to all lung waddell. Symmetrical rise and fall of chest, no obvious signs of increased work of breathing at present. Cardiac: Regular rate and rhythm, positive S1, S2. No murmurs, rubs or gallops that I can appreciate Abdomen: Soft, non-tender to palpation, normal active bowel sounds to all quadrants. No palpable masses, no organomegaly and abdominal bruits. Extremities: 2+ pulses in the upper extremities that are equal bilaterally, 2+ pulses in the lower extremities that are equal bilaterally. Non-edematous. Moves all extremities well, sensation to all extremities are noted. Skin: Warm, dry, intact. Course Vital Signs: Vital signs: Vital Signs Temperature 97.0 F L 08/30/23 13:14 Pulse Rate 68 08/30/23 15:14 Respiratory Rate 16 08/30/23 15:14 Blood Pressure 148/75 08/30/23 15:14 Pulse Oximetry 94 08/30/23 15:14 Oxygen Delivery Me thod Room Air 08/30/23 14:30 MDM - SOB/Dyspnea Medical Decision Making 63-year-old female presents emergency department with complaints of feeling like she is having shortness of breath with her cough. She states she has been ill for several weeks and has been tested for flu and COVID but it was negative. We will obtain a chest x-ray and laboratory evaluation to include a CBC and CMP for evaluation. Will also obtain cardiac enzymes and twelve-lead EKG and monitor the patient's oxygen saturation. Lab Data I reviewed the patient's lab results. 08/30/23 13:25 08/30/23 13: Labs/Radiology: Radiology Impressions Chest X-Ray 08/30/23 13: IMPRESSION: No acute cardiopulmonary abnormality identified. Laboratory Results WBC 4.63 10^3/uL (3.29-11.43) 08/30/23 13: RBC 4.92 10^6/uL (3.85-5.65) 08/30/23 13: Hgb 15.30 g/dL (11.27-16.99) 08/30/23 13: Hct 45.5 % (36-47) 08/30/23: MCV 92.5 fl (85-98) 08/30/23: MCH 31.1 pg (27-33) 08/30/23: MCHC 33.6 g/dL (30-55) 08/30/23: RDW 12.6 % (12.1-15.1) 08/30/23: Plt Count 236 10^3/cmm (157-399) 08/30/23: MPV 10.4 fL (7.4-10.4) 08/30/23 13: Neut % (Auto) 48.6 % 08/30/23: Lymph % (Auto) 36.5 % 08/30/23 13: [place] % (Auto) 13.2 % 08/30/23: Eos % (Auto) 1.1 % 08/30/23: Baso % (Auto) 0.4 % 08/30/23: Neut # (Auto) 2.25 10^3/uL (1.8-7.7) 08/30/23: Lymph # (Auto) 1.7 10^3/uL (0.8-4.8) 08/30/23: [place] # (Auto) 0.6 10^3/uL (0.2-0.9) 08/30/23 13: Eos # (Auto) 0.1 10^3/uL (0.0-0.8) 08/30/23: Baso # (Auto) 0.0 10^3/uL (0.0-0.1) 08/30/23 13:25 Nucleated RBC % (auto) 0 % 08/30/23 13:25 Nucleated RBCs # 0.0 /100WBC 08/30/23 13:25 PT 12.30 SECONDS (12.1-14.9) 08/30/23 13:25 INR 0.89 (0.8-1.2) 08/30/23 13:25 Sodium 142 mmol/L (136-145) 08/30/23 13:25 Potassium 3.6 mmol/L (3.5-5.1) 08/30/23 13:25 Chloride 107 mmol/L (98-107) 08/30/23 13:25 Carbon Dioxide 24 mmol/L (22-29) 08/30/23 13:25 Anion Gap 14.6 (5-19) 08/30/23 13:25 BUN 14 mg/dL (8-23) 08/30/23 13:25 Creatinine 0.7 mg/dL (0.5-0.9) 08/30/23 13:25 GFR Calculation 84.2 mL/min (90-130) L 08/30/23 13:25 Glucose 103 mg/dL (65-115) 08/30/23 13:25 Calculated Osmolality 295 mOsm/kg (285-295) 08/30/23 13:25 Calcium 8.5 mg/dL (8.5-10.5) 08/30/23 13:25 Total Bilirubin 0.3 mg/dL (0.15-1.2) 08/30/23 13:25 AST 31 U/L (0-32) 08/30/23 13:25 ALT 25 U/L (0-33) 08/30/23 13:25 Alkaline Phosphatase 72 U/L (35-105) 08/30/23 13:25 Troponin T Baseline 14 ng/L (0-10) H 08/30/23 13:25 NT-Pro-B Natriuret Pep 90 pg/mL (0-125) 08/30/23 13:25 Total Protein 6.6 g/dL (6.6-8.7) 08/30/23 13:25 Albumin 3.9 g/dL (3.5-5.2) 08/30/23 13:25 Globulin 2.7 g/dL (1.3-4.6) 08/30/23 13:25 All radiology interpretation(s) finalized by discharge EKG Data EKG 1: Interpretation: Twelve-lead EKG obtained at 1324 and reviewed at 1326 demonstrates normal sinus rhythm with a ventricular rate of 62 bpm, FL interval 145, QRS duration 94, QT 379, QTc 385. There is no ST elevation or depression to demonstrate acute ischemia or infarction at present. Discharge Plan Discharge Patient Disposition: Home Clinical Impression: Exertional shortness of breath, COPD on long-term inhaled steroid therapy Condition: Stable Prescriptions: New benzonatate 200 mg capsule 200 mg PO TID Qty: 30 0RF prednisone 20 mg tablet 40 mg PO DAILY 5 Days Qty: 10 0RF albuterol sulfate 90 mcg/actuation HFA aerosol inhaler 2 inh inhalation Q6H PRN (Reason: shortness of breath or wheezing) Qty: 8.5 0RF No Action hydroxychloroquine 200 mg tablet 200 mg PO BID Qty: 60 3RF oxycodone-acetaminophen 5-325 mg tablet 1 tab PO TID MDD 3 PRN (Reason: pain) 30 Days Qty: 90 0RF gabapentin 300 mg capsule 300 mg PO TID Qty: 90 4RF tizanidine 4 mg tablet 4 mg PO BID PRN (Reason: muscle spasticity) Qty: 60 3RF hydroxyzine HCl 25 mg tablet 25 mg PO BID PRN (Reason: Itching) acetaminophen 325 mg capsule 325 mg PO Q4H PRN (Reason: fever or pain) Qty: 60 0RF ibuprofen 200 mg Capsule 600 mg PO Q6H PRN (Reason: Pain) bupropion HCl 300 mg tablet extended release 24 hr 300 mg PO DAILY bupropion HCl 150 mg tablet extended release 24 hr 150 mg PO DAILY oxybutynin chloride 5 mg tablet extended release 24hr 5 mg PO DAILY Discharge Orders: Discharge ED (Routine); Ordered 08/30/23 Ordered By: Nish Lieberman Referrals: Jaida Guerra [Primary Care Provider] - Discharge Diet: Advance as tolerated Discharge Activity: Resume usual activity Patient Instructions: Opioid Safety, Pain Management Activity Restrictions/Additional Instructions: Activity Restrictions/Additional Instructions: Thank you for choosing [facility] for your healthcare needs today. Please realize that you were seen in the Emergency Department and that we are providing you with an emergency medical screening exam and this may not be a complete and all inclusive of all the testing and or medical work-up that you may need to determine your ailment or severity of your illness. It is very important that you follow-up as instructed with your Primary care provider or Specialist for additional evaluation and to discuss your medical treatment plan. You may return to the Emergency Department should you have concerns or if your condition changes or worsens in any way. Coding Level of Care Code ED Loss Prevention Detective for Tika Villalta
[2023-08-30 13:14] VITALS: PULSE 64; RESP 20; TEMP 36.1; O2SAT 98
--- NOTE | 2023-08-30 13:20 | PC.NURSE ---
Pt placed on continuous SpO2 monitoring
--- NOTE | 2023-08-30 13:20 | PC.NURSE ---
Pt placed on bedside citizenship teacher
--- NOTE | 2023-08-30 13:24 | ECG_ITS ---
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 Measurements Intervals [place] Rate: 62 P: 38 AK: 145 QRS: -5 QRSD: 94 T: -20 QT: 379 QTc: 387 Interpretive Statements SINUS RHYTHM POSSIBLE LEFT ATRIAL ENLARGEMENT [-0.1mV P-WAVE IN V1/V2] NONSPECIFIC ST & T-WAVE ABNORMALITY Compared to ECG 04/28/2023 10:37:14 No significant changes Electronically Signed On 09-01-2023 7:56:59 CUT LACE MACHINE OPERATOR by Gerard Acevedo M.D. [id number]
[2023-08-30 13:48] LABS: Basophils % 0.4 %; Eosinophils # 0.1 10^3/uL (0.0-0.8); Eosinophils % 1.1 %; Hematocrit 45.5 % (36-47); Lymphocytes # 1.7 10^3/uL (0.8-4.8); Lymphocytes % 36.5 %; Mean Corpuscular HGB Conc 33.6 g/dL (30-55); Mean Corpuscular Hemoglobin 31.1 pg (27-33); Mean Corpuscular Volume 92.5 fl (85-98); Mean Platelet Volume 10.4 fL (7.4-10.4); Monocytes # 0.6 10^3/uL (0.2-0.9); Monocytes % 13.2 %; Neutrophils # 2.25 10^3/uL (1.8-7.7); Neutrophils % 48.6 %; Nucleated Red Blood Cells % 0 %; Platelet Count 236 10^3/cmm (157-399); Red Blood Count 4.92 10^6/uL (3.85-5.65); Red Cell Distribution Width 12.6 % (12.1-15.1); White Blood Count 4.63 10^3/uL (3.29-11.43)
[2023-08-30 14:00] VITALS: BP 115/63; PULSE 71; RESP 18; O2SAT 92
[2023-08-30 14:03] LABS: INR 0.89 (0.8-1.2)
[2023-08-30 14:14] LABS: Troponin(5th) Baseline 14 ng/L (0-10)
[2023-08-30 14:21] LABS: Alanine Aminotransferase 25 U/L (0-33); Albumin Level 3.9 g/dL (3.5-5.2); Alkaline Phosphatase 72 U/L (35-105); Anion Gap 14.6 (5-19); Aspartate Amino Transferase 31 U/L (0-32); Blood Urea Nitrogen 14 mg/dL (8-23); Calcium 8.5 mg/dL (8.5-10.5); Carbon Dioxide 24 mmol/L (22-29); Chloride 107 mmol/L (98-107); Creatinine Clr Calc Pharmacy 80.6218; Globulin 2.7 g/dL (1.3-4.6); Glomerular Filtration Rate 84.2 mL/min (90-130); Glucose 103 mg/dL (65-115); NT Pro B Type Natriuretic Pept 90 pg/mL (0-125); Osmolality Calculated 295 mOsm/kg (285-295); Potassium 3.6 mmol/L (3.5-5.1); Sodium 142 mmol/L (136-145); Total Bilirubin 0.3 mg/dL (0.15-1.2); Total Protein 6.6 g/dL (6.6-8.7)
[2023-08-30 14:30] VITALS: BP 121/88; PULSE 65; RESP 19; O2SAT 95
[2023-08-30] MEDS: methylPREDNISolone sod succ 125 mg/2 mL INJ 60 MG IVP (15:12)
[2023-08-30 15:14] VITALS: BP 148/75; PULSE 68; RESP 16; O2SAT 94
== END 2023-08-30 15:21 | disposition home or self-care (01) ==
PROVIDERS: Emergency Provider Internal Medicine; PCP Nurse Practitioner Family
DX: J44.9 Chronic obstructive pulmonary disease, unspecified (principal); Z79.51 Long term (current) use of inhaled steroids; Z87.891 Personal history of nicotine dependence
CPT/HCPCS: 71045; 80053; 83880; 84484; 85025; 85610; 93005; 96374; 99285; J2930

== ENCOUNTER → 2023-11-26 09:19 | Outpatient (BNVA) | payer MEDICARE, SELFPAY | PROVIDERS: PCP Nurse Practitioner Family; Visit Provider Anesthesiology Pain Medicine | DX: G89.29 Other chronic pain; M43.26 Fusion of spine, lumbar region; M43.24 Fusion of spine, thoracic region; Z79.899 Other long term (current) drug therapy; M54.12 Radiculopathy, cervical region | CPT/HCPCS: 99214 ==

== ENCOUNTER → 2024-01-20 09:21 | Outpatient (BNVA) | payer MEDICARE, SELFPAY | PROVIDERS: PCP Nurse Practitioner Family; Visit Provider Anesthesiology Pain Medicine | DX: M43.24 Fusion of spine, thoracic region (principal); G89.29 Other chronic pain; M54.12 Radiculopathy, cervical region; M43.26 Fusion of spine, lumbar region | CPT/HCPCS: 99214 ==

== ENCOUNTER 2024-01-23 09:57 | Emergency (ER) | payer MEDICARE, SELFPAY ==
[2024-01-23 10:00] VITALS: BP 187/102; PULSE 76; RESP 16; TEMP 36.3; O2SAT 96; BMI 32.1
--- NOTE | 2024-01-23 10:15 | W.ED.EXTPRO ---
HPI - Extremity Problem General: Chief complaint: Extremity Problem,Nontraumatic Stated complaint: pain right leg, nausea, fever Time Seen by Provider: 01/23/24 10:12 Source: patient Mode of arrival: ambulatory Limitations: no limitations History of Present Illness: Patient is a 63-year-old female presents to ED today with a complaint of pain to her right knee. Patient states in 2020 she was underwent a total knee arthroplasty by a surgeon in [place]. She states since the surgery she has had an additional surgery to scope the knee and clean out scar tissue . That surgery was also performed years ago. She states over the years she has had on and off discomforts in the knee. She states she began noticing worsening discomfort as well as swelling in the knee back in November. She states she has difficulty ambulating on the extremity at times secondary to the knee discomfort. She chronically ambulates with crutches because of her back. She has not noticed any redness to the joint. She states it is slightly warm to the touch. She has not had any known recent injury or trauma. No calf pain or swelling. She has not had any documented fevers. Patient is a chronic pain patient under pain management for chronic neck and back pains. States she probably will not be able to follow-up with orthopedics here at [facility] as she is moving out of the state in 2 weeks. Complaint: joint swelling and joint pain Onset (ago): month(s) Pain Consistency: constant Location: right and knee Radiation: none Relieving factors: immobilization Exacerbating factors: range of motion, weight bearing and walking Associated symptoms: Reports no associated symptoms; Deny chest pain, fever(s) or rash Review of Systems Const: Denies: fever(s), chills, body aches, fatigue or malaise Card: Denies: chest pain Resp: Denies: dyspnea GI: Reports: nausea; Denies: abdominal pain, vomiting, diarrhea or change in bowel habits Musc: Reports: joint pain, joint swelling and joint warmth; Denies: neck pain, back pain, extremity pain, extremity swelling, joint redness, limited range of motion or muscle cramps Skin/Breast: Denies: rash Neuro: Reports: difficulty walking (secondary to pain in the knee); Denies: numbness in extremities, weakness in extremities or sensory changes PFS ED PFSH: Medical History Osteoarthritis, generalized High risk medication use Inflammatory arthritis Restrictive lung disease due to kyphoscoliosis Fusion of spine, thoracic region Fusion of lumbar spine Chronic neck and back pain Surgical History H/O of anterior colporrhaphy (~04/29/23) Anterior colporrhaphy augmented with allograft, single incision mid urethral sling, posterior colporrhaphy, cystoscopy with Coloplast dermis allograft. Performed by Dr. Lnogoria at [facility]. Hx of cervical discectomy Hx of appendectomy History of lumbar surgery Hx of knee surgery Hx of shoulder surgery Hx of mastectomy double- with oral chemo History of surgery on wrist History of ankle surgery Hx of hernia repair umbilical? Hx of hysterectomy in the has a small section of an ovary Family History Mother Diabetes Heart disease Sister Diabetes Hypercholesteremia Brother Diabetes Heart disease Hypercholesteremia Denies family history of Lupus (systemic lupus erythematosus) Rheumatoid arthritis Colon cancer Ovarian cancer Breast cancer Hypertension Uterine cancer Thyroid disease Stroke Social History Smoking and tobacco/nicotine status: former use of tobacco/nicotine Quit status (tobacco/nicotine): has quit using Year quit tobacco: 1999 Former quit date comment: 1.5 ppd X 15 years Marital status: Number of children: 3 Physical Exam Const: COMMON NORMALS: no acute distress, patient oriented x3, no limitations, alert and well nourished GENERAL APPEARANCE: cooperative NUTRITIONAL APPEARANCE: overweight ORIENTATION/CONSCIOUSNESS: Yes awake, Yes oriented to person, Yes oriented to place and Yes oriented to time Resp: COMMON NORMALS: normal respiratory effort and clear to auscultation bilaterally AUSCULTATION: clear to auscultation bilaterally Cardio: COMMON NORMALS: regular rate and regular rhythm RATE: regular rate RHYTHM: regular rhythm Extremity: COMMON NORMALS: capillary refill normal, no clubbing, cyanosis or edema, no calf tenderness and no pedal edema GENERAL: Yes normal exam except as noted RIGHT LOWER EXTREMITY: Yes knee joint (mild edema noted; warmth; no erythema; normal micromovements ) Right knee: Yes neurovascular exam (normal) OTHER: Patient has some tenderness with ROM pain is not out of proportion and she has fairly comfortable micro-movements. No swelling into calf or calf pain. Neuro: COMMON NORMALS: patient oriented x3, moves all extremities, no focal motor deficits and no sensory deficits noted SENSORIUM/ORIENTATION: Yes alert, Yes oriented to person, Yes oriented to place and Yes oriented to time Course Vital Signs: Vital signs: Vital Signs Temperature 97.4 F L 01/23/24 10:00 Pulse Rate 76 01/23/24 10:00 Respiratory Rate 16 01/23/24 10:00 Blood Pressure 187/102 01/23/24 10:00 Pulse Oximetry 96 01/23/24 10:00 Oxygen Delivery Me thod Room Air 01/23/24 10:00 MDM - Extremity (Nontraumatic) Medical Decision Making Based on patient's history and physical examination I do not have any concern for septic arthritis. Nothing to suggest DVT. Patient's XR of the right knee showing no loosening of her hardware or periprosthetic fractures. Patient will be placed on steroids and anti-inflammatories with recommendations for ice, elevation, compression, and offloading. They state they are moving out of state in 2 weeks. Recommend they follow-up with an orthopedist when they get established there. Return to ED precautions given. XR interpretation done by ED provider, pending radiology final review Discharge Plan Discharge Patient Disposition: Home Clinical Impression: Pain in right knee Qualifiers: Chronicity: acute Qualified Code(s): M25.561 - Pain in right knee Condition: Stable Prescriptions: New prednisone 10 mg tablet 10 mg PO DAILY 6 Days Qty: 20 0RF Rx Instructions: Take 5 tabs on day 1-2, 4 tabs on day 3, 3 tabs on day 4, 2 tabs on day 5, and 1 tab on day 6 ondansetron 4 mg tablet,disintegrating 4 mg PO Q8H PRN (Reason: nausea and vomiting) Qty: 14 0RF ibuprofen 600 mg tablet 600 mg PO Q8H PRN (Reason: pain) Qty: 14 0RF Discontinued ibuprofen 200 mg Capsule 600 mg PO Q6H PRN (Reason: Pain) No Action hydroxychloroquine 200 mg tablet 200 mg PO BID Qty: 60 3RF hydroxyzine HCl 25 mg tablet 25 mg PO BID PRN (Reason: Itching) oxycodone-acetaminophen 5-325 mg tablet 1 tab PO TID MDD 3 PRN (Reason: pain) 30 Days Qty: 90 0RF gabapentin 300 mg capsule 300 mg PO TID Qty: 90 4RF tizanidine 4 mg tablet 4 mg PO BID PRN (Reason: muscle spasticity) Qty: 60 3RF acetaminophen 325 mg capsule 325 mg PO Q4H PRN (Reason: fever or pain) Qty: 60 0RF bupropion HCl 300 mg tablet extended release 24 hr 300 mg PO DAILY bupropion HCl 150 mg tablet extended release 24 hr 150 mg PO DAILY oxybutynin chloride 5 mg tablet extended release 24hr 5 mg PO DAILY benzonatate 200 mg capsule 200 mg PO TID Qty: 30 0RF albuterol sulfate 90 mcg/actuation HFA aerosol inhaler 2 inh inhalation Q6H PRN (Reason: shortness of breath or wheezing) Qty: 8.5 0RF Discharge Orders: Discharge ED (Routine); Ordered 01/23/24 Ordered By: Qi Servin Referrals: Jaida Guerra [Primary Care Provider] - Activity Restrictions/Additional Instructions: As we discussed I would like you to ice and elevate the knee joint as well as provide compression with a neoprene knee sleeve or similar wrap. Continue offloading with the help of your cane. As we discussed you need to follow-up with an coding support specialist as soon as she moved to your new area. Return to the emergency department for severe or worsening knee pain, redness to the joint, fevers, severe pain with minimal movements of the joint, or any other concerns you may have. Coding Level of Care Code ED Delinquent Tax Collection Assistant for Tika Villalta
--- NOTE | 2024-01-23 10:25 | XR_ITS ---
WS: [id number] XR knee RT 3V* [id number] REASON FOR EXAM: pain/swelling FINDINGS: Total right knee arthroplasty. Components of the arthroplasty are intact and in proper position unchanged compared to 08/04/2023. Medially/anteriorly in the tibia there is the appearance of separation of the tibial component with a fracture line extending inferiorly. These findings however were present on the previous examination of 10/05/2022 and likely relate to revision. No soft tissue abnormality. XR/XR knee RT 3V* [id number] IMPRESSION: No acute abnormality identified. Chronic abnormalities medial tibia adjacent to the tibial component of the pros thesis as above.
[2024-01-23] MEDS: ketorolac 30 mg/mL INJ IM (10:40)
[2024-01-23] MEDS: dexamethasone 10 mg/mL INJ 8 MG IM (10:42)
[2024-01-23] MEDS: morphine 4 mg/mL SDV 1 mL IM (10:46)
[2024-01-23] MEDS: promethazine 25 mg/mL SDV 1 mL IM (11:28)
[2024-01-23 11:47] VITALS: BP 174/101; PULSE 75; RESP 17; O2SAT 96
== END 2024-01-23 11:48 | disposition home or self-care (01) ==
PROVIDERS: Emergency Provider Physician Assistant; PCP Nurse Practitioner Family
DX: M25.561 Pain in right knee (principal); Z87.891 Personal history of nicotine dependence
CPT/HCPCS: 73562; 96372; 99284; J1100; J1885; J2270; J2550